=== PATIENT | female | born 1935 | race Caucasian/White ===

== ENCOUNTER 2021-03-22 10:31 | Emergency (ER) | payer MEDICARE ==
[2021-03-22] MEDS ORDERED: Aspirin Chewable 81 MG TAB ONE (11:05)
[2021-03-22 11:26] LABS: Hemoglobin 15.6 g/dL (12.0-16.0); Mean Corpuscular HGB CONC 32.6 g/dL (32.0-36.0); Mean Corpuscular Hemoglobin 38.5 pg (27.0-31.0); Mean Platelet Volume 7.9 fL (7.4-10.4); Platelet Count 275 thou/uL (130-400); Red Blood Cell (RBC) Count 4.04 mill/uL (4.20-5.40); White Blood Cell (WBC) Count 4.8 thou/uL (4.8-10.8)
[2021-03-22 11:27] LABS: Eosinophils 1 % (0-10); Lymphocytes 19 % (21-51); MDiff Complete? YES; Macrocytosis SLIGHT = 6-15 cells (100X) (0-5/hpf); Manual Diff?? YES; Monocytes 10 % (0-10); Neutrophil 70 % (42-75); Ovalocytes SLIGHT = 2-5 cells (100X) (0-1/hpf)
[2021-03-22 11:35] LABS: Anion Gap 17 mmol/L (10-20); Carbon Dioxide 24 mmol/L (23-31); Chloride 105 mmol/L (98-107); Potassium 4.7 mmol/L (3.5-5.1); Sodium 141 mmol/L (136-145)
[2021-03-22 11:36] LABS: ALT (SGPT) 22 U/L (8-55); AST (SGOT) 44 U/L (5-34); Albumin 4.1 g/dL (3.4-4.8); Alkaline Phosphatase 62 U/L (40-110); BUN (Urea Nitrogen) 10 mg/dL (9.8-20.1); Bilirubin, Total 0.6 mg/dL (0.2-1.2); Calc. Creatinine Clearance 0 mL/min (70-130); Calcium 9.7 mg/dL (7.8-10.44); Globulin 3.2 g/dL (2.4-3.5); Glucose 110 mg/dL (83-110); Protein, Total 7.3 g/dL (5.8-8.1)
[2021-03-22 11:41] LABS: CKMB 1.9 ng/mL (0-6.6)
[2021-03-22] MEDS ORDERED: Metoprolol Tartrate 5 MG/5 ML VIAL ONE (13:37)
[2021-03-22 17:05] LABS: Troponin I 0.054 ng/mL (< 0.028)
[2021-03-22] MEDS ORDERED: Enoxaparin Sodium 100 MG/ML SYRINGE ONE (19:15)
== END 2021-03-22 19:25 | disposition short-term general hospital (02) ==
LOC: BURERS 10:31
DX: I10 Essential (primary) hypertension (principal); R07.89 Other chest pain; E78.5 Hyperlipidemia, unspecified; Z79.82 Long term (current) use of aspirin; Z79.899 Other long term (current) drug therapy
CPT/HCPCS: 36415; 71046; 80053; 82553; 83880; 84484; 85025; 93005; 96372; 96374; J1650